=== PATIENT | male | born 2000 | race Caucasian/White ===

== ENCOUNTER 2023-09-24 11:59 | Emergency (ER) | payer OTHER ==
[2023-09-24] MEDS ORDERED: Amoxicillin/Potassium Clav 875 MG TAB ONE (12:59)
[2023-09-24] MEDS ORDERED: Ketorolac Tromethamine 30 MG (1 mL) VIAL ONE (12:59)
[2023-09-24] MEDS ORDERED: HYDROcodone/Acetaminophen 5/325 mg Tablet ONE (12:59)
== END 2023-09-24 13:30 | disposition home or self-care (01) ==
LOC: MADERS 11:59
DX: K08.89 Other specified disorders of teeth and supporting structures (principal); M27.2 Inflammatory conditions of jaws; F17.210 Nicotine dependence, cigarettes, uncomplicated
CPT/HCPCS: 96372; 99282; J1885

== ENCOUNTER 2025-03-07 01:29 | Emergency (ER) | payer MEDICAID, OTHER | END 2025-03-07 02:14 | disposition home or self-care (01) | LOC: MADERS 01:29 | DX: J06.9 Acute upper respiratory infection, unspecified (principal); B20 Human immunodeficiency virus [HIV] disease; F17.210 Nicotine dependence, cigarettes, uncomplicated | CPT/HCPCS: 87428; Q0162 ==